=== PATIENT | male | born 1965 | race African-American/Black ===

== ENCOUNTER 2022-05-24 10:49 | Inpatient (IN) | payer OTHER ==
[2022-05-24 11:32] VITALS: BMI 21.8
[2022-05-24] MEDS ORDERED: IBUPROFEN 600 MG TABLET (FP) PO PRN (12:01)
[2022-05-24] MEDS ORDERED: IBUPROFEN 400 MG TABLET (FP) PO PRN (12:01)
[2022-05-24] MEDS ORDERED: METHOCARBAMOL 500 MG TABLET PO PRN (12:01)
[2022-05-24] MEDS ORDERED: MAG HYDROX/AL HYDROX/SIMETH 30 ML UNIT-DOSE CUP PO PRN (12:01)
[2022-05-24] MEDS ORDERED: cloNIDine HCL 0.1 MG TABLET PO PRN (12:01)
[2022-05-24] MEDS ORDERED: NICOTINE POLACRILEX 2 MG GUM BUC PRN (12:01)
[2022-05-24] MEDS ORDERED: ACETAMINOPHEN 325 MG TABLET (FP) PO PRN ×2 (12:01)
[2022-05-24] MEDS ORDERED: methaDONE HCL 10 MG TABLET (FOR DETOX USE ONLY) PO ONE (12:01)
[2022-05-24] MEDS ORDERED: BENZOCAINE/MENTHOL (CHLORASEPTIC ) LOZENGE MM PRN (12:01)
[2022-05-24] MEDS ORDERED: MAGNESIUM HYDROX 2400MG/30ML ORAL SUSPENSION 30 ML CUP PO PRN (12:01)
[2022-05-24] MEDS ORDERED: MAGNESIUM CITRATE 300 ML BOTTLE PO PRN (12:01)
[2022-05-24] MEDS ORDERED: LOPERAMIDE HCL 2 MG CAPSULE PO PRN (12:01)
[2022-05-24] MEDS ORDERED: NALOXONE HCL (KLOXXADO) 8 MG SPRAY NS PRN (12:01)
[2022-05-24] MEDS ORDERED: ONDANSETRON *ODT* 4 MG TABLET SL PRN (12:01)
[2022-05-24] MEDS ORDERED: DICYCLOMINE HCL 10 MG CAPSULE PO PRN (12:01)
[2022-05-24] MEDS ORDERED: BISMUTH SUBSALICYLATE 524 MG/30 ML PO PRN (12:01)
[2022-05-24] MEDS ORDERED: ALBUTEROL SO4 HFA INHALER IH PRN (12:07)
[2022-05-24] MEDS ORDERED: methaDONE HCL 10 MG TABLET (FOR DETOX USE ONLY) ONE (12:13)
[2022-05-24] MEDS ORDERED: PATIENT'S OWN MEDICATION (NON-FORMULARY) (Salmeterol/Fluticasone [Advair 250mcg/50mcg -] 1 PO SCH (12:15)
[2022-05-24] MEDS: ASPIRIN 81 MG CHEWABLE TABLETS PO SCH (12:31)
[2022-05-24] MEDS: BUDESONIDE/FORMETEROL FUMARATE 80/4.5 mcg INHALER IH SCH ×2 (12:31→22:41)
[2022-05-24] MEDS: APIXABAN 5 MG TABLET PO SCH ×2 (12:31→22:41)
[2022-05-24] MEDS: PRENATAL VITAMINS W/ FOLIC ACID TABLET (FP) PO SCH (12:33)
[2022-05-24] MEDS: NICOTINE 10 MG CARTRIDGE (INHALER) IH PRN ×2 (15:31→18:54)
[2022-05-24 15:41] LABS: HEMATOCRIT 32.2 % (35.4-49); HEMOGLOBIN 10.8 GM/dL (11.7-16.9); MCH 27.9 pg (25.7-33.7); MCHC 33.6 g/dl (32.0-35.9); MEAN PLT VOLUME 7.3 fl (7.5-11.1); PLATELET COUNT 244 10^3/uL (134-434); RBC 3.88 M/mm3 (4.00-5.60); RDW 15.1 % (11.9-15.9); WHITE BLOOD COUNT 3.6 K/mm3 (4.0-10.0)
[2022-05-24 16:28] LABS: BLOOD UREA NITROGEN 8.7 mg/dL (7-18); CALCIUM 8.7 mg/dL (8.5-10.1)
[2022-05-24 16:29] LABS: ALBUMIN 3.4 g/dl (3.4-5.0)
[2022-05-24 16:32] LABS: BILIRUBIN,TOTAL 0.2 mg/dL (0.2-1)
[2022-05-24 16:33] LABS: TOT PROT 7.1 g/dl (6.4-8.2)
[2022-05-24] MEDS: chlordiazePOXIDE HCL 25 MG CAPSULE PO SCH ×2 (17:25→22:41)
[2022-05-24] MEDS ORDERED: MELATONIN 5 MG TABLETS PO SCH (22:00)
[2022-05-24] MEDS: THIAMINE HCL 100 MG TABLET (FP) PO SCH (22:42)
[2022-05-24] MEDS: QUEtiapine FUMARATE 200 MG TABLET PO SCH (22:43)
[2022-05-25] MEDS: chlordiazePOXIDE HCL 25 MG CAPSULE PO SCH ×4 (06:16→23:28)
[2022-05-25 11:42] VITALS: RESP 8
[2022-05-25 13:33] VITALS: BP 119/71; PULSE 84; TEMP 98.6
[2022-05-25] MEDS: ASPIRIN 81 MG CHEWABLE TABLETS PO SCH (14:07)
[2022-05-25] MEDS: PRENATAL VITAMINS W/ FOLIC ACID TABLET (FP) PO SCH (14:08)
[2022-05-25] MEDS: APIXABAN 5 MG TABLET PO SCH ×2 (14:08→23:27)
[2022-05-25] MEDS: BUDESONIDE/FORMETEROL FUMARATE 80/4.5 mcg INHALER IH SCH ×2 (14:08→23:27)
[2022-05-25] MEDS: QUEtiapine FUMARATE 200 MG TABLET PO SCH (23:27)
[2022-05-25] MEDS: THIAMINE HCL 100 MG TABLET (FP) PO SCH (23:28)
[2022-05-26] MEDS ORDERED: chlordiazePOXIDE HCL 25 MG CAPSULE PO SCH (05:00)
[2022-05-26] MEDS ORDERED: methaDONE HCL 10 MG TABLET (FOR DETOX USE ONLY) PO ONE (10:00)
[2022-05-27] MEDS ORDERED: chlordiazePOXIDE HCL 10 MG CAPSULE PO SCH (05:00)
[2022-05-28] MEDS ORDERED: chlordiazePOXIDE HCL 10 MG CAPSULE PO SCH (05:00)
[2022-05-28] MEDS ORDERED: methaDONE HCL 10 MG TABLET (FOR DETOX USE ONLY) PO ONE (10:00)
[2022-05-29] MEDS ORDERED: chlordiazePOXIDE HCL 10 MG CAPSULE PO ONE (05:00)
== END 2022-05-25 23:58 | disposition short-term general hospital (02) | DRG 897 ==
LOC: YASAS 10:49 → Y6N 11:57
PROVIDERS: ADMIT Allergy & Immunology; ATTEND Surgery
PROC: HZ2ZZZZ Detoxification Services for Substance Abuse Treatment (ICD-10-PCS; principal; 2022-05-24)
DX: F11.23 Opioid dependence with withdrawal (principal); F14.20 Cocaine dependence, uncomplicated; F19.282 Other psychoactive substance dependence with psychoactive substance-induced sleep disorder; F10.230 Alcohol dependence with withdrawal, uncomplicated; F17.210 Nicotine dependence, cigarettes, uncomplicated; I10 Essential (primary) hypertension; E78.5 Hyperlipidemia, unspecified; E11.9 Type 2 diabetes mellitus without complications; F20.9 Schizophrenia, unspecified; M54.50 Low back pain, unspecified; G89.29 Other chronic pain; R41.82 Altered mental status, unspecified; E86.0 Dehydration; I95.9 Hypotension, unspecified; Z88.8 Allergy status to other drugs, medicaments and biological substances; Z91.011 Allergy to milk products
CPT/HCPCS: 36415; 80053; 82962; 85027; 86780; C9803-CS; U0003; U0005

== ENCOUNTER 2022-05-25 14:06 | Inpatient (IN) | payer OTHER ==
[2022-05-25 14:22] VITALS: BMI 21.8
[2022-05-25] MEDS ORDERED: NALOXONE HCL 0.4 MG/ML VIAL ONE ×2 (14:34→19:55)
[2022-05-25] MEDS ORDERED: NALOXONE HCL 0.4 MG/ML VIAL IVPUSH ONE ×2 (14:49→19:55)
[2022-05-25] MEDS ORDERED: HALOPERIDOL LACTATE 5 MG/ML IM ONE ×4 (15:26→22:51)
[2022-05-25] MEDS ORDERED: LORazepam 2 MG/ML SDV VIAL IM ONE (15:59)
[2022-05-25] MEDS ORDERED: LACTATED RINGERS SOLUTION 1,000 ML IV STA (16:23)
[2022-05-25] MEDS ORDERED: ACETAMINOPHEN 1000 MG/100 ML BAG IVPB ONE (16:24)
[2022-05-25] MEDS ORDERED: ACETAMINOPHEN INJECTION 100 ML IVPB ONE (16:29)
[2022-05-25 17:31] LABS: VENOUS BASE EXCESS 1.9 mmol/L (-2-2); VENOUS O2 SATURATION 62.2 % (70-80); VENOUS PCO2 54.1 mmHg (38-52); VENOUS PH 7.34 (7.310-7.410)
[2022-05-25] MEDS ORDERED: DEXTROSE 50%-WATER - 25 GM/50 ML VIAL IVPUSH ONE (17:31)
[2022-05-25 17:32] LABS: HEMOGLOBIN 11.1 GM/dL (11.7-16.9); PH,URINE 5.5 (5.0-8.0); RBC 4.03 M/mm3 (4.00-5.60); URINE APPEARANCE CLEAR; URINE BILIRUBIN NEGATIVE (NEGATIVE); URINE COLOR YELLOW; URINE GLUCOSE (UA) NEGATIVE (NEGATIVE); URINE KETONE NEGATIVE (NEGATIVE); URINE LEUK ESTERASE NEGATIVE (NEGATIVE); URINE NITRITE NEGATIVE (NEGATIVE); URINE PROTEIN NEGATIVE (NEGATIVE); URINE UROBILINOGEN 0.2 mg/dL (0.2-1.0); WHITE BLOOD COUNT 6.7 K/mm3 (4.0-10.0)
[2022-05-25 17:33] LABS: BASO % 0.6 % (0-2.0); EOS % 2.8 % (0-4.5); HEMATOCRIT 33.6 % (35.4-49); LYMPH % 14.7 % (8-40); MCH 27.6 pg (25.7-33.7); MCHC 33.1 g/dl (32.0-35.9); MEAN CELL VOLUME 83.4 fl (80-96); MONO % 6.8 % (3.8-10.2); NEUT % 75.1 % (42.8-82.8); PLATELET COUNT 253 10^3/uL (134-434); RDW 15.5 % (11.9-15.9)
[2022-05-25] MEDS ORDERED: DEXTROSE 50%-WATER 25 GM/50 ML DISP.SYRIN ONE (17:33)
[2022-05-25 17:39] LABS: INR 1.14 (0.83-1.09); PROTHROMBIN TIME (PATIENT) 13.1 SEC (9.7-13.0)
[2022-05-25 17:51] LABS: CHLORIDE 104 mmol/L (98-107); SODIUM 141 mmol/L (136-145)
[2022-05-25 17:53] LABS: ALBUMIN 3.6 g/dl (3.4-5.0); ANION GAP 8 MMOL/L (8-16); BLOOD UREA NITROGEN 10.1 mg/dL (7-18); CALCIUM 9.1 mg/dL (8.5-10.1); CO2 28 mmol/L (21-32); GLUCOSE,RANDOM 54 mg/dL (74-106)
[2022-05-25 17:57] LABS: CREATININE 1.2 mg/dL (0.55-1.3); SGOT/AST 58 U/L (15-37); SGPT/ALT 28 U/L (13-61)
[2022-05-25 17:58] LABS: BILIRUBIN,TOTAL 0.7 mg/dL (0.2-1); TOT PROT 7.1 g/dl (6.4-8.2)
[2022-05-25 17:59] LABS: ALK PHOS 80 U/L (45-117)
[2022-05-25 18:38] LABS: OPIATES, URI NEGATIVE (NEGATIVE); PHENCYCLIDINE,URINE NEGATIVE (NEGATIVE)
[2022-05-25 18:41] LABS: MAGNESIUM 1.8 mg/dL (1.8-2.4)
[2022-05-25] MEDS ORDERED: CEFTRIAXONE 2 GM in DEXTROSE 5%-WATER - 100 ML IVPB ONE (19:17)
[2022-05-25] MEDS ORDERED: VANCOMYCIN 1 GM in D5W (PRE-DOCKED) 1,000 MG/250 ML IVPB ONE ×2 (19:19→19:20)
[2022-05-25] MEDS ORDERED: ACYCLOVIR 1000 MG (50MG/ML) VIAL IVPB ONE (19:20)
[2022-05-25] MEDS ORDERED: AMPICILLIN - 2 GM in SODIUM CHLORIDE 100 ML IVPB ONE (19:22)
[2022-05-25] MEDS ORDERED: CEFTRIAXONE 2 GM/100 ML BAG IVPB ONE (19:25)
[2022-05-25 19:34] LABS: COCAINE, UR POSITIVE (NEGATIVE); METHADONE, UR POSITIVE (NEGATIVE); URINE AMPHETAMINES NEGATIVE (NEGATIVE); URINE BARBITURATES NEGATIVE (NEGATIVE); URINE BENZODIAZEPINES POSITIVE (NEGATIVE)
[2022-05-25] MEDS ORDERED: DEXTROSE 5% IVPB ONE ×2 (20:05→20:15)
[2022-05-25] MEDS ORDERED: ACYCLOVIR IVPB ONE ×2 (20:05→20:15)
[2022-05-25] MEDS ORDERED: WATER IVPB ONE ×2 (20:05→20:15)
[2022-05-25] MEDS ORDERED: AMPICILLIN SODIUM 2 GM VIAL ONE (20:09)
[2022-05-25 20:32] LABS: BF GLUCOSE (CSF ONLY) 51 mg/dL (40-70)
[2022-05-25] MEDS ORDERED: VANCOMYCIN/WATER FOR INJ (PEG) 1,000 MG/200 ML BAG IVPB ONE (20:57)
[2022-05-25 21:08] LABS: CSF APPEARANCE CLEAR (CLEAR); CSF COLOR COLORLESS (COLORLESS); CSF WBC 0 mm3 (0-5)
[2022-05-25] MEDS ORDERED: LORazepam 1 MG TABLET PO PRN (22:02)
[2022-05-25] MEDS ORDERED: MIDAZOLAM HCL 5 MG/1 ML Single Dose Vial IM ONE (22:25)
[2022-05-25] MEDS ORDERED: ALBUTEROL SO4 HFA INHALER IH PRN (22:30)
[2022-05-25] MEDS ORDERED: MIDAZOLAM HCL 5 MG/1 ML Single Dose Vial ONE (22:51)
[2022-05-25] MEDS ORDERED: FOLIC ACID 5 MG/1 ML SQ ONE (23:45)
[2022-05-26] MEDS: LORazepam 1 MG TABLET PO SCH ×6 (00:17→10:15)
[2022-05-26] MEDS ORDERED: VANCOMYCIN/WATER FOR INJ (PEG) 1,000 MG/200 ML BAG IVPB ONE (00:24)
[2022-05-26] MEDS: FOLIC ACID INJECTION - 1 MG, THIAMINE HCL 100 MG, MULTIVIT INJECTION ADULT 10 ML in SOD... IVPB ONE ×2 (07:09→07:39)
[2022-05-26] MEDS ORDERED: SODIUM CHLORIDE 1,000 ML IV SCH ×2 (08:00→16:04)
[2022-05-26 08:28] LABS: BASO % 0.3 % (0-2.0); EOS % 4.1 % (0-4.5); HEMATOCRIT 34.8 % (35.4-49); HEMOGLOBIN 11.2 GM/dL (11.7-16.9); LYMPH % 22.6 % (8-40); MCH 26.9 pg (25.7-33.7); MCHC 32.3 g/dl (32.0-35.9); MEAN CELL VOLUME 83.5 fl (80-96); MEAN PLT VOLUME 6.8 fl (7.5-11.1); MONO % 8.2 % (3.8-10.2); NEUT % 64.8 % (42.8-82.8); PLATELET COUNT 248 10^3/uL (134-434); RBC 4.17 M/mm3 (4.00-5.60); RDW 15.1 % (11.9-15.9); WHITE BLOOD COUNT 4.3 K/mm3 (4.0-10.0)
[2022-05-26 08:47] LABS: ALBUMIN 2.9 g/dl (3.4-5.0); BLOOD UREA NITROGEN 8.7 mg/dL (7-18); CALCIUM 8.5 mg/dL (8.5-10.1)
[2022-05-26 08:51] LABS: CREATININE 0.9 mg/dL (0.55-1.3); PHOSPHOROUS 4.2 mg/dL (2.5-4.9)
[2022-05-26 08:52] LABS: BILIRUBIN,TOTAL 0.5 mg/dL (0.2-1)
[2022-05-26 08:53] LABS: TOT PROT 6.2 g/dl (6.4-8.2)
[2022-05-26 08:54] VITALS: RESP 18
[2022-05-26] MEDS: BUDESONIDE/FORMETEROL FUMARATE 80/4.5 mcg INHALER IH SCH ×2 (09:06→21:18)
[2022-05-26] MEDS: THIAMINE HCL 200 MG/2 ML VIAL IVPB SCH (09:06)
[2022-05-26] MEDS: NICOTINE 7 MG/24 HOURS TOPICAL PATCH TD SCH (09:18)
[2022-05-26] MEDS ORDERED: traZODone HCL 150 MG TABLET PO SCH (10:00)
[2022-05-26] MEDS ORDERED: APIXABAN 5 MG TABLET PO SCH (10:00)
[2022-05-26] MEDS ORDERED: MULTIVITAMINS (DAILY MVI) TABLET (FP) PO SCH (10:00)
[2022-05-26] MEDS ORDERED: DEXTROSE 5% IVPB SCH (10:00)
[2022-05-26] MEDS ORDERED: ASPIRIN 81 MG CHEWABLE TABLETS PO SCH (10:00)
[2022-05-26] MEDS ORDERED: ACYCLOVIR IVPB SCH (10:00)
[2022-05-26] MEDS ORDERED: WATER IVPB SCH (10:00)
[2022-05-26] MEDS ORDERED: TAMSULOSIN HCL 0.4 MG CAP PO SCH ×2 (10:00→14:53)
[2022-05-26] MEDS ORDERED: ENOXAPARIN NA (PORCINE) 40 MG/0.4 ML DISP.SYRIN SQ SCH (10:00)
[2022-05-26] MEDS: PIPERACILLIN/TAZOB 3.375 GM 3.375 GM in DEXTROSE 5%-WATER - 50 ML IVPB SCH ×2 (11:31→18:20)
[2022-05-26] MEDS ORDERED: DEXTROSE 5%-0.45% SALINE 1,000 ML IV SCH (16:45)
[2022-05-26] MEDS ORDERED: QUEtiapine FUMARATE 200 MG TABLET PO SCH (22:00)
[2022-05-26] MEDS ORDERED: ATORVASTATIN CA 20 MG TABLET (FP) PO SCH (22:00)
[2022-05-27] MEDS: PIPERACILLIN/TAZOB 3.375 GM 3.375 GM in DEXTROSE 5%-WATER - 50 ML IVPB SCH ×3 (02:35→10:36)
[2022-05-27] MEDS ORDERED: LORazepam 1 MG TABLET PO SCH (05:00)
[2022-05-27] MEDS ORDERED: LORazepam 1 MG TABLET PO PRN (09:39)
[2022-05-27] MEDS ORDERED: FOLIC ACID 5 MG/1 ML SQ SCH (10:00)
[2022-05-27] MEDS ORDERED: APIXABAN 5 MG TABLET PO SCH (10:00)
[2022-05-27] MEDS: BUDESONIDE/FORMETEROL FUMARATE 80/4.5 mcg INHALER IH SCH (10:36)
[2022-05-27] MEDS: THIAMINE HCL 200 MG/2 ML VIAL IVPB SCH (10:36)
[2022-05-27] MEDS: NICOTINE 7 MG/24 HOURS TOPICAL PATCH TD SCH (10:36)
[2022-05-27 10:46] VITALS: BP 98/52; PULSE 60; TEMP 98.8
[2022-05-28] MEDS ORDERED: LORazepam 0.5 MG TABLET PO PRN
[2022-05-28] MEDS ORDERED: LORazepam 0.5 MG TABLET PO SCH (05:00)
[2022-05-29] MEDS ORDERED: LORazepam 0.5 MG TABLET PO PRN
[2022-05-29] MEDS ORDERED: LORazepam 0.5 MG TABLET PO ONE (05:00)
[2022-05-30 10:09] LABS: LYME PCR CSF Negative (Negative)
== END 2022-05-27 14:31 | disposition left against medical advice (07) | DRG 93 ==
LOC: JER 14:06 → JERBED 20:07 → J4W 05-26 02:26
PROVIDERS: ADMIT Internal Medicine; ATTEND Internal Medicine
PROC: 009U3ZX Drainage of Spinal Canal, Percutaneous Approach, Diagnostic (ICD-10-PCS; principal; 2022-05-25)
DX: G92.8 Other toxic encephalopathy (principal); F14.129 Cocaine abuse with intoxication, unspecified; E11.649 Type 2 diabetes mellitus with hypoglycemia without coma; F20.9 Schizophrenia, unspecified; F31.9 Bipolar disorder, unspecified; J45.909 Unspecified asthma, uncomplicated; I10 Essential (primary) hypertension; D64.9 Anemia, unspecified; E78.5 Hyperlipidemia, unspecified; D72.829 Elevated white blood cell count, unspecified; F17.210 Nicotine dependence, cigarettes, uncomplicated; F12.90 Cannabis use, unspecified, uncomplicated; F10.10 Alcohol abuse, uncomplicated
CPT/HCPCS: 0241U-QW; 36415; 70450-TC; 71045-TC-FY; 80053; 80307; 81003; 82140; 82728; 82803; 82945; 82962; 83540; 83550; 83605; 83735; 84100; 84157; 84443; 84466; 84484; 85025; 85045; 85610; 85730; 86592; 86644; 86663; 86664; 86665; 86694; 86735; 86765; 86787; 86788; 86789; 87040; 87070; 87086; 87205; 87476; 87529; 93005; 93010; 99285-25

== ENCOUNTER 2022-07-14 13:50 | Inpatient (IN) | payer OTHER ==
[2022-07-14 15:33] VITALS: BMI 22.4
[2022-07-14] MEDS ORDERED: IBUPROFEN 600 MG TABLET (FP) PO PRN (16:35)
[2022-07-14] MEDS ORDERED: chlordiazePOXIDE HCL 25 MG CAPSULE PO PRN (16:35)
[2022-07-14] MEDS ORDERED: ACETAMINOPHEN 325 MG TABLET (FP) PO PRN (16:35)
[2022-07-14] MEDS ORDERED: NICOTINE POLACRILEX 2 MG GUM BUC PRN (16:35)
[2022-07-14] MEDS ORDERED: NICOTINE 10 MG CARTRIDGE (INHALER) IH PRN (16:35)
[2022-07-14] MEDS ORDERED: LOPERAMIDE HCL 2 MG CAPSULE PO PRN (16:35)
[2022-07-14] MEDS ORDERED: MAGNESIUM HYDROX 2400MG/30ML ORAL SUSPENSION 30 ML CUP PO PRN (16:35)
[2022-07-14] MEDS ORDERED: DICYCLOMINE HCL 10 MG CAPSULE PO PRN (16:35)
[2022-07-14] MEDS ORDERED: IBUPROFEN 400 MG TABLET (FP) PO PRN (16:35)
[2022-07-14] MEDS ORDERED: BENZOCAINE/MENTHOL (CHLORASEPTIC ) LOZENGE MM PRN (16:35)
[2022-07-14] MEDS ORDERED: POLYETHYLENE GLYCOL (HEALTHYLAX) 3350 17 GM PACKET PO PRN (16:35)
[2022-07-14] MEDS ORDERED: NALOXONE HCL (KLOXXADO) 8 MG SPRAY NS PRN (16:35)
[2022-07-14] MEDS ORDERED: ONDANSETRON *ODT* 4 MG TABLET SL PRN (16:35)
[2022-07-14] MEDS ORDERED: MAG HYDROX/AL HYDROX/SIMETH 30 ML UNIT-DOSE CUP PO PRN (16:35)
[2022-07-14] MEDS ORDERED: BISMUTH SUBSALICYLATE 524 MG/30 ML PO PRN (16:35)
[2022-07-14] MEDS ORDERED: hydrOXYzine PAMOATE 25 MG CAPSULE (FP) PO PRN (16:35)
[2022-07-14] MEDS ORDERED: chlordiazePOXIDE HCL 25 MG CAPSULE ONE (22:01)
[2022-07-14] MEDS: chlordiazePOXIDE HCL 25 MG CAPSULE PO SCH (22:14)
[2022-07-14] MEDS: THIAMINE HCL 100 MG TABLET (FP) PO SCH (22:14)
[2022-07-14] MEDS: MELATONIN 5 MG TABLETS PO SCH (22:14)
[2022-07-15] MEDS ORDERED: hydrOXYzine PAMOATE 25 MG CAPSULE (FP) PO ONE (01:32)
[2022-07-15] MEDS ORDERED: ONDANSETRON *ODT* 4 MG TABLET ONE (01:36)
[2022-07-15] MEDS ORDERED: chlordiazePOXIDE HCL 25 MG CAPSULE ONE (06:47)
[2022-07-15] MEDS: chlordiazePOXIDE HCL 25 MG CAPSULE PO SCH ×5 (06:48→22:50)
[2022-07-15] MEDS: PRENATAL VITAMINS W/ FOLIC ACID TABLET (FP) PO SCH (09:58)
[2022-07-15] MEDS ORDERED: ALBUTEROL SO4 HFA INHALER IH PRN (10:46)
[2022-07-15] MEDS: NICOTINE 7 MG/24 HOURS TOPICAL PATCH TD SCH (11:00)
[2022-07-15] MEDS: APIXABAN 5 MG TABLET PO SCH ×2 (13:00→21:52)
[2022-07-15] MEDS: AZITHROMYCIN 250 MG TABLET PO SCH (21:52)
[2022-07-15] MEDS: THIAMINE HCL 100 MG TABLET (FP) PO SCH (21:53)
[2022-07-15] MEDS: ATORVASTATIN CA 20 MG TABLET (FP) PO SCH (21:53)
[2022-07-15] MEDS: MELATONIN 5 MG TABLETS PO SCH (21:53)
[2022-07-15] MEDS: BUDESONIDE/FORMETEROL FUMARATE 80/4.5 mcg INHALER IH SCH (22:00)
[2022-07-16] MEDS: chlordiazePOXIDE HCL 25 MG CAPSULE PO SCH ×4 (06:18→22:52)
[2022-07-16] MEDS: BUDESONIDE/FORMETEROL FUMARATE 80/4.5 mcg INHALER IH SCH ×2 (09:46→22:52)
[2022-07-16] MEDS: APIXABAN 5 MG TABLET PO SCH ×2 (09:46→22:50)
[2022-07-16] MEDS: PRENATAL VITAMINS W/ FOLIC ACID TABLET (FP) PO SCH (09:46)
[2022-07-16] MEDS: TAMSULOSIN HCL 0.4 MG CAP PO SCH (09:46)
[2022-07-16] MEDS: NICOTINE 7 MG/24 HOURS TOPICAL PATCH TD SCH (09:46)
[2022-07-16 10:29] LABS: HEMATOCRIT 35.1 % (35.4-49); HEMOGLOBIN 11.4 GM/dL (11.7-16.9); MCH 27.4 pg (25.7-33.7); MCHC 32.5 g/dl (32.0-35.9); MEAN CELL VOLUME 84.4 fl (80-96); MEAN PLT VOLUME 7.5 fl (7.5-11.1); PLATELET COUNT 218 10^3/uL (134-434); RBC 4.15 M/mm3 (4.00-5.60); RDW 15.9 % (11.9-15.9); WHITE BLOOD COUNT 5.5 K/mm3 (4.0-10.0)
[2022-07-16] MEDS: AZITHROMYCIN 250 MG TABLET PO SCH (11:24)
[2022-07-16 11:38] LABS: ALBUMIN 3.3 g/dl (3.4-5.0); CALCIUM 9.2 mg/dL (8.5-10.1)
[2022-07-16 11:39] LABS: BLOOD UREA NITROGEN 13.9 mg/dL (7-18)
[2022-07-16 11:42] LABS: BILIRUBIN,TOTAL 0.4 mg/dL (0.2-1); TOT PROT 6.9 g/dl (6.4-8.2)
[2022-07-16] MEDS: ACETAMINOPHEN 325 MG TABLET (FP) PO PRN (19:52)
[2022-07-16] MEDS: ATORVASTATIN CA 20 MG TABLET (FP) PO SCH (22:51)
[2022-07-16] MEDS: MELATONIN 5 MG TABLETS PO SCH (22:51)
[2022-07-16] MEDS: THIAMINE HCL 100 MG TABLET (FP) PO SCH (22:52)
[2022-07-17] MEDS ORDERED: chlordiazePOXIDE HCL 10 MG CAPSULE PO PRN
[2022-07-17] MEDS: ACETAMINOPHEN 325 MG TABLET (FP) PO PRN ×2 (02:23→14:47)
[2022-07-17] MEDS: METHOCARBAMOL 500 MG TABLET PO PRN ×2 (02:23→14:47)
[2022-07-17] MEDS: chlordiazePOXIDE HCL 10 MG CAPSULE PO SCH ×4 (05:51→22:56)
[2022-07-17] MEDS: TAMSULOSIN HCL 0.4 MG CAP PO SCH (09:09)
[2022-07-17] MEDS: APIXABAN 5 MG TABLET PO SCH ×2 (09:09→22:55)
[2022-07-17] MEDS: PRENATAL VITAMINS W/ FOLIC ACID TABLET (FP) PO SCH (09:09)
[2022-07-17] MEDS: BUDESONIDE/FORMETEROL FUMARATE 80/4.5 mcg INHALER IH SCH ×2 (09:16→22:56)
[2022-07-17] MEDS: NICOTINE 7 MG/24 HOURS TOPICAL PATCH TD SCH (09:17)
[2022-07-17] MEDS: AZITHROMYCIN 250 MG TABLET PO SCH (09:23)
[2022-07-17] MEDS ORDERED: PERMETHRIN 5% TOPICAL CREAM 60 GM TUBE TP ONE (18:48)
[2022-07-17] MEDS: THIAMINE HCL 100 MG TABLET (FP) PO SCH (22:55)
[2022-07-17] MEDS: MELATONIN 5 MG TABLETS PO SCH (22:56)
[2022-07-17] MEDS: ATORVASTATIN CA 20 MG TABLET (FP) PO SCH (22:56)
[2022-07-18] MEDS: METHOCARBAMOL 500 MG TABLET PO PRN (02:41)
[2022-07-18] MEDS: ACETAMINOPHEN 325 MG TABLET (FP) PO PRN (02:41)
[2022-07-18] MEDS: chlordiazePOXIDE HCL 10 MG CAPSULE PO SCH ×2 (06:13→17:45)
[2022-07-18] MEDS ORDERED: PERMETHRIN (NIX CREAM SCALP RINSE) 59 ML 1% BOTTLE TP ONE (09:00)
[2022-07-18] MEDS: TAMSULOSIN HCL 0.4 MG CAP PO SCH (09:35)
[2022-07-18] MEDS: PRENATAL VITAMINS W/ FOLIC ACID TABLET (FP) PO SCH (10:29)
[2022-07-18] MEDS: AZITHROMYCIN 250 MG TABLET PO SCH (10:29)
[2022-07-18] MEDS: APIXABAN 5 MG TABLET PO SCH ×2 (10:29→22:44)
[2022-07-18] MEDS: BUDESONIDE/FORMETEROL FUMARATE 80/4.5 mcg INHALER IH SCH ×2 (10:31→22:44)
[2022-07-18] MEDS: NICOTINE 7 MG/24 HOURS TOPICAL PATCH TD SCH (10:31)
[2022-07-18] MEDS: MELATONIN 5 MG TABLETS PO SCH (22:43)
[2022-07-18] MEDS: ATORVASTATIN CA 20 MG TABLET (FP) PO SCH (22:44)
[2022-07-18] MEDS: THIAMINE HCL 100 MG TABLET (FP) PO SCH (22:44)
[2022-07-19] MEDS ORDERED: chlordiazePOXIDE HCL 10 MG CAPSULE PO ONE (05:00)
[2022-07-19 09:07] VITALS: BP 103/59; PULSE 94; RESP 18; TEMP 96.8
[2022-07-19] MEDS: TAMSULOSIN HCL 0.4 MG CAP PO SCH (09:26)
[2022-07-19] MEDS: PRENATAL VITAMINS W/ FOLIC ACID TABLET (FP) PO SCH (09:26)
[2022-07-19] MEDS: APIXABAN 5 MG TABLET PO SCH (09:26)
[2022-07-19] MEDS: NICOTINE 7 MG/24 HOURS TOPICAL PATCH TD SCH (09:27)
[2022-07-19] MEDS: AZITHROMYCIN 250 MG TABLET PO SCH (09:27)
[2022-07-19] MEDS: BUDESONIDE/FORMETEROL FUMARATE 80/4.5 mcg INHALER IH SCH (09:27)
== END 2022-07-19 11:26 | disposition home or self-care (01) | DRG 896 ==
LOC: YASAS 13:50 → Y3N 07-15 12:29
PROVIDERS: ADMIT Allergy & Immunology; ATTEND Surgery
PROC: HZ2ZZZZ Detoxification Services for Substance Abuse Treatment (ICD-10-PCS; principal; 2022-07-15)
DX: F10.230 Alcohol dependence with withdrawal, uncomplicated (principal); U07.1 COVID-19; F14.20 Cocaine dependence, uncomplicated; F17.210 Nicotine dependence, cigarettes, uncomplicated; I10 Essential (primary) hypertension; B85.0 Pediculosis due to Pediculus humanus capitis; M19.90 Unspecified osteoarthritis, unspecified site; J45.909 Unspecified asthma, uncomplicated; E78.5 Hyperlipidemia, unspecified; R73.03 Prediabetes; M54.59 Other low back pain; G89.29 Other chronic pain; Z91.011 Allergy to milk products; Z91.018 Allergy to other foods; Z88.8 Allergy status to other drugs, medicaments and biological substances
CPT/HCPCS: 36415; 80053; 83036; 85027; 86780; 87811; C9803-CS; Q0162; U0003; U0005